=== PATIENT | female | born 1950 | race Caucasian/White ===

== ENCOUNTER → 2022-02-01 | Outpatient (CLI) | payer SELFPAY ==
--- NOTE | 2022-02-01 | EMB_PTH ---
PATIENT: BATSHEVA BEDOLLA LOC: [facility] U#:[id number] AGE/SX: 71/F ROOM: RE02/01/[address]: Dr. Crystal Bedolla, : 1950 BED: DIS: 02/01/2022 SPEC #: [id number] RECD: 02/01/22 14:20 STATUS: TRACY RETresa #: [id number] BRAXTON: 02/01/22 00:[address]: Crystal Bedolla DEPT: SURGICAL PATHOLOGY RECD BY: Rajiv Walker Tissues: Endometrium, NOS Procedures: Surgery Specimen Level IV HEADER OPERATION: Endometrial biopsy PRE-OP DIAGNOSIS: PMB TISSUE SUBMITTED: Endometrial biopsy MICROSCOPIC DIAGNOSIS Endometrium, biopsy: Superficial strips of benign glandular mucosa. AM:mine 02/03/2022 MICROSCOPIC DESCRIPTION Slides are reviewed. GROSS DESCRIPTION Received in fixative is one container labeled with the patient's name and designated endometrial biopsy. The specimen consists of multiple fragments of hemorrhagic mucoid tissue that in aggregate measure 1.5 x 0.5 x 0.1 cm. The specimen is totally submitted in one cassette. / SJ:rg 02/02/2022 TC:5 CPT: 39982
[2022-02-09 16:08] LABS: HPV APTIMA, High Risk Negative (Negative)
== END | disposition home or self-care (01) ==
PROVIDERS: Visit Provider Student in an Organized Health Care Education/Training Program
DX: N95.0 Postmenopausal bleeding (principal)
CPT/HCPCS: 87624; 88175; 88305; G0145

== ENCOUNTER 2022-02-11 09:20 | Day surgery (SDC) | payer SELFPAY ==
--- NOTE | 2022-02-11 | EMB_PTH ---
PATIENT: BATSHEVA BEDOLLA LOC: [facility] [place] U#:[id number] AGE/SX: 71/F ROOM: RE02/11/[address]: Dr. Crystal Bedolla, : 1950 BED: DIS: 02/11/2022 SPEC #: [id number] RECD: 02/11/22 14:27 STATUS: TRACY ABBY #: [id number] BRAXTON: 02/11/22 00:[address]: Crystal Bedolla DEPT: SURGICAL PATHOLOGY RECD BY: Rajiv Walker ENTERED: 02/12/22 08:55 SP TYPE: ENDOM BX/C KERMIT DR: ALF Sanchez Tissues: Endometrium, NOS Procedures: Surgery Specimen Level IV HEADER OPERATION: Hysteroscopy, dilation and curettage PRE-OP DIAGNOSIS: Postmenopausal bleeding TISSUE SUBMITTED: Endometrial curettings and polyp MICROSCOPIC DIAGNOSIS Endometrial curettings and polyp: Benign endocervical polyp, mildly inflamed. Rare detached benign glandular tissue. AM:mine 02/15/2022 MICROSCOPIC DESCRIPTION Slides are reviewed. GROSS DESCRIPTION Received in fixative is one container labeled with the patient's name and designated endometrial curettings and polyp. The specimen consists of an irregular fragment of pink-granger soft tissue measuring 2?x 1.5 x 0.2 cm. The specimen is submitted in its entirety in one cassette. / AM:mine 02/12/2022 TC:1 CPT: 23021
--- NOTE | 2022-02-11 07:13 | PCM.HP.BLA ---
History and Physical Date of Admission: 02/11/22 HPI: 71-year-old female presenting for hysteroscopy, dilation curettage for postmenopausal bleeding. Denies fevers or chills, headache or vision changes, chest pain or shortness of breath, diarrhea constipation, nausea or vomiting. Medical history: Denies Surgical history: Tonsillectomy Medications: 1. Latanoprost 2. Multiple vitamins 3. Zypan Allergies: No known drug allergies Family history: CHF Social history: Denies tobacco, alcohol, drug use Review of system: Negative otherwise stated above Physical exam: BP146/82, Weight 156 General: No acute distress HEENT: Normocephalic/atraumatic, PERRLA Cardiac: Regular rate and rhythm Lungs: Clear to auscultation bilaterally Abdomen: Soft, nontender, nondistended Extremities: No edema Musculoskeletal: Strength 5 out of 5 throughout all extremities Neurologic: Cranial nerves II through XII grossly intact, no focal deficits Assessment/plan: 71-year-old female presenting for hysteroscopy, dilation curettage for postmenopausal bleeding. All risk, benefits, terms discussed the patient.? Risk include but are not limited to: Risk of bleeding to the point transfusion, infection, injury to surrounding tissue including bowel/bladder/major abdominal vessels, VTE, ICU admission.? Patient aware and consented
[2022-02-11 10:02] VITALS: BP 171/80; PULSE 104; RESP 16; TEMP 36.4; O2SAT 97; BMI 25.3
[2022-02-11 10:26] LABS: Hematocrit 43.6 % (37-47); Hemoglobin 14.7 g/dL (12.0-15.0); Mean Corp Hgb Conc 33.7 g/dL (32-36); Mean Corpuscular Hgb 31.2 pg (27.0-32.0); Mean Corpuscular Volume 92.6 fL (81-99); Mean Platelet Vol. 9.8 fl (6.2-12.0); Platelet Count 214 K/mm3 (150-450); RBC Distribution Width CV 12.7 % (11.6-14.6); RBC Distribution Width SD 43.8 fl (35.1-43.9); Red Blood Count 4.71 M/mm3 (4.2-5.4); White Blood Count 4.6 K/mm3 (4.4-11.0)
[2022-02-11] MEDS: Lactated Ringers 1,000 ML 15 ML IV (10:27)
--- NOTE | 2022-02-11 10:38 | PCM.OPRPT ---
Report of Operation Date of Procedure: 02/11/22 Pre-Operative Diagnosis: Postmenopausal bleeding Post-Operative Diagnosis: Postmenopausal bleeding, endometrial polyp Surgery/Procedure Performed:: Hysteroscopy, dilation and curettage, polypectomy Description of Surgical Findings:: Normal-appearing external genitalia. Good uterine descensus. Large posterior broad endometrial polyp. Polyp palpates firm, small cystic appearing areas at edge. Visible bilateral tubal ostia. Type of Anesthesia: MAC Specimen's removed: Endometrial curettings Estimated Blood Loss (mL): 5cc Fluids Replaced: 500cc Description of Procedure: Indication/risk/benefits: 71-year-old female with postmenopausal bleeding patient had thickened endometrial stripe and abnormal myometrial tissue on ultrasound, endometrial biopsy in office had scant tissue with pathology resulting benign. Due to ultrasound findings and scant tissue on biopsy decision for hysteroscopy, dilation curettage was made. All risk, benefits, alternatives discussed with patient. Risk include but are not limited to: Risk of bleeding transfusion, infection, injury to surrounding tissue including bowel/bladder/uterine perforation, VTE, ICU admission. Patient aware and consented. Procedure: Patient taken to the operating room and MAC anesthesia induced. Patient placed in the dorsal lithotomy position and prepped and draped in usual sterile fashion. Bladder drained. Weighted speculum placed in the posterior vagina and Leone retractor used to visualize the cervix. Anterior lip of the cervix grasped with Allis clamp. Cervix sequentially dilated. Hysteroscope placed through cervical canal and visualization of the endometrial cavity was completed. Showing large endometrial polyp. Hysteroscope removed. Curettage completed scant tissue. Polyp forceps utilized to remove polyp in entirety. Hysteroscope replaced confirming complete removal of endometrial polyp. Hysteroscope removed. Curettage completed again. Allis clamp removed. Cervix hemostatic. Weighted speculum removed. At the end of the procedure all needle, lap, sponge counts were correct. UOP: 100cc clear urine Complications None
--- NOTE | 2022-02-11 10:39 | DCINST_ITS ---
Discharge Instructions Diet Discharge Diet: No restrictions Activity Discharge Activity: Return to Normal Activity and May Shower May resume sexual activity in: 2 weeks Weight Bearing Status: Weight bearing as tolerated Lifting Restrictions: None Dressing / Incision Call your doctor if you observe: Fever of 101 or Higher, Change in Color, Inability to urinate, Using more than 1 pad per hour, Shortness of breath, Dizziness, Swelling in the ankles, Chest pain and Calf discomfort Follow Up Care Please Follow Up With: Crystal Bedolla DO When: 1-2 week postoperative visit Test Results: Test results from this visit will be discussed in further detail at your follow- up appointment, if applicable. Discharge Plan Admission Primary Reason for Your Visit: Dilation and curettage, polypectomy Attending Provider: Crystal Bedolla Primary Care Provider: Shahana Price Discharge Orders/Prescriptions Prescriptions: No Action latanoprost 0.005 % Drops 1 drp EACH EYE QPM vitamin A 10,000 unit Capsule 10,000 unit PO DAILY timolol 0.5 % Drops 1 drp EACH EYE DAILY vitamin E 400 unit Tablet 400 unit PO DAILY garlic Capsule 500 mg PO DAILY vitamin B complex Capsule 1 cap PO DAILY multivitamin [id number] Tablet 1 tab PO DAILY Fish Oil 1,000 mg Capsule 1 cap PO DAILY alpha lipoic acid 200 mg Capsule 200 mg PO DAILY turmeric 400 mg Capsule 400 mg PO DAILY bitter melon extract 750 mg Tablet 750 mg PO DAILY French Skull Cap 1 tab PO/SL DAILY Leg Veins 1 cap PO/SL DAILY Ocular Retina Defense 1 cap PO/SL DAILY [place] Bark Extract 1 tab PO/SL DAILY Zypan 1 tab PO/SL DAILY Referrals / Follow Up: Shahana Price PA [Primary Care Provider] - Disposition Disposition (needs filled in before D/C Order can be placed): Home, Self Care
[2022-02-11 12:50] VITALS: BP 120/67; BP 171/80; PULSE 83; RESP 15; TEMP 37; O2SAT 97
[2022-02-11 12:55] VITALS: BP 134/67; BP 171/80; PULSE 80; RESP 16; O2SAT 95
[2022-02-11 13:00] VITALS: BP 127/66; BP 171/80; PULSE 78; RESP 16; O2SAT 93
[2022-02-11 13:05] VITALS: BP 129/67; BP 171/80; PULSE 80; RESP 16; TEMP 36.4; O2SAT 92
[2022-02-11 13:34] VITALS: BP 171/80
== END 2022-02-11 14:05 | disposition home or self-care (01) ==
LOC: SDC 09:36 → AC 09:37
PROVIDERS: Referring Provider Student in an Organized Health Care Education/Training Program; Visit Provider Student in an Organized Health Care Education/Training Program
PROC: 0UDB8ZZ Extraction of Endometrium, Via Natural or Artificial Opening Endoscopic (ICD-10-PCS; CPT 58558; principal; 2022-02-11 10:50)
DX: N95.0 Postmenopausal bleeding (principal); N84.0 Polyp of corpus uteri
CPT/HCPCS: 58558; 00952; 85027; 86850; 86900; 86901; 88305; J7120; J2405